=== PATIENT | male | born 1960 | race Caucasian/White ===

== ENCOUNTER 2024-05-01 13:56 | Emergency (ER) | payer BC, SELFPAY ==
[2024-05-01 14:04] VITALS: BP 148/98
--- NOTE | 2024-05-01 14:05 | ED.GENMED ---
ED Provider Triage
<Lashay Giron PA-C - Last Filed: 05/01/24 17:00>
-
Patient seen by provider in Triage?: Seen in Triage
Attestation: A medical screening examination has been initiated by a qualified medical provider. Based on the assessment performed at this time, it has been determined that an emergent medical condition may exist and the patient has been informed
that further medical evaluation and possible additional diagnostic testing may be needed.
HPI: 64yoM here with LLQ pain since last night. Feels like he has to have a BM but is unable to. Also having chills, no fevers. No prior abdominal surgeries.
GENERAL: Alert , in no apparent distress
EYE: No visual abnormalities.
NECK: Trachea midline
ENT: No visible abnormalities.
LUNGS: No acute respiratory distress
NEUROLOGICAL: Alert and oriented
SKIN: Skin intact. No visible changes.
MUSCULOSKELETAL: Moving extremities normally
PSYCH: Normal and appropriate interaction.
This is a medical evaluation conducted in person to initiate diagnostic evaluation and provide initial therapeutics. Please see further documentation by the treating clinician.
Abdominal labs, UA, and CT abdomen ordered.
History of Present Illness
<Lashay Giron PA-C - Last Filed: 05/01/24 17:00>
General
Chief Complaint: Abdominal Pain
Time Seen by Provider: 05/01/24 14:35
<Carroll Brandon MD - Last Filed: 05/01/24 16:43>
General
Source: patient and spouse
Exam Limitations: none
Nursing documentation reviewed up to this point in time: agreed with
History of Present Illness
History of Present Illness:
64-year-old male with past medical history of hypertension, GERD who presents to the emergency room with his for evaluation of abdominal pain. Patient reports onset of symptoms over the past 24 hours and have been constant since that time. He
reports a dull pressure sensation in the left lower quadrant that radiates to his left flank. No clear triggering or relieving factors noted. He denies any recent constipation or diarrhea. He denies any dysuria, hematuria, change in urinary
frequency. He has had some nausea no vomiting. Denies any fever or chills. Denies similar symptoms in the past.
Past History
<Lashay Giron PA-C - Last Filed: 05/01/24 17:00>
Past History
ED Past Medical History: GERD, HTN and Other (Pneumonia); Negative Hypercholesterolemia
ED Past Surgical History: None
Social History
Tobacco: Former smoker
Alcohol: Occasional
Drug: None
Personal:
Living: with family
Employment: Other
Family History
Family History: Other
Review of Systems
<Carroll Brandon MD - Last Filed: 05/01/24 16:43>
Review of Systems
All Other Systems: ROS reviewed and negative except as documented in HPI and ROS
Constitutional: Denies fever or chills
Respiratory: Denies cough or trouble breathing
Cardiac: Denies chest pain or palpitations
ABD/GI: Reports abdominal pain and nausea; Denies vomiting, diarrhea or constipated
: Reports flank pain; Denies dysuria or frequency
Musculoskeletal: Denies neck pain or back pain
Neurological: Denies dizzy or headache
Phy Exam
<Carroll Brandon MD - Last Filed: 05/01/24 16:43>
Physical Exam
Physical Exam:
General: Awake, alert, oriented x3; no acute distress
Head: Normocephalic, atraumatic
Eyes: Conjunctiva normal, sclera anicteric
Throat: Airway intact, handling secretions
Neck: Trachea midline, supple without meningismus
Lungs: Clear to auscultation bilaterally, no wheezing, rales, rhonchi
Heart: Regular rate and rhythm, no murmurs, gallops, or rubs
Abd: Soft, non distended, tender to palpation left lower quadrant with no appreciable masses
Back: No CVA tenderness
Neuro: No gross deficit
Extremities: Warm and well-perfused
Scores
<Carroll Brandon MD - Last Filed: 05/01/24 16:43>
Heart Failure Risk
Heart Failure Risk Score: Not Applicable
Heart Score for Chest Pain Patients
STEMI patient?: Not applicable
Withdrawal Assessment of Alcohol
Withdrawal Assessment Completed?: Not applicable
Course
<Lashay Giron PA-C - Last Filed: 05/01/24 17:00>
Orders/Labs/Results
Orders:
Orders
05/01/24 14:06
CT Abd/Pel (IV only)-[facility] only Urgent
Comment:
Reason For Exam: LLQ pain
05/01/24 14:11
Complete Blood Count/With Diff Urgent
Comprehensive Metabolic Panel Urgent
Lipase Urgent
05/01/24 14:12
Urinalysis Reflex To Culture Urgent
Date Specimen was Collected: 05/01/24
Time Specimen was Collected: 14:11
Urine Microscopic Reflex Cult Urgent
05/01/24 15:53
0.9% Sodium Chloride 1000 ml [Nss] 1,000 ml IV BOLUS
Ketorolac [Toradol] 15 mg IV NOW STA
05/01/24 16:25
Ciprofloxacin HCl [Cipro] 500 mg PO ONCE ONE
MetroNIDAZOLE [Flagyl] 500 mg PO NOW STA
Abnormal Lab Results
05/01/24 05/01/24
14:11 14:12
WBC 16.6 H 10^3/uL
(4.8-10.8)
Abs Immat Gran (auto) 0.1 H 10^3/uL
(0-0.05)
Absolute Neuts (auto) 13.3 H 10^3/uL
(1.4-6.5)
Absolute Monos (auto) 1.3 H 10^3/uL
(0.1-0.6)
Neutrophils % 80.0 H %
(42.2-75.2)
Lymphocytes % 11.4 L %
(20.5-51.1)
Glucose 111 H mg/dl
(70-99)
Ur Occult Blood Reflex Trace A
(Negative)
05/01/24 14:11
05/01/24 14:11
Vital Signs
Initial and Last Documented VS:
Initial Vital Signs
Temp Pulse Resp BP Pulse Ox
98.7 F 99 18 148/98 95
05/01/24 14:04 05/01/24 14:04 05/01/24 14:04 05/01/24 14:04 05/01/24 14:04
Last Documented Vital Signs
Temp Pulse Resp BP Pulse Ox
98.7 F 77 16 141/69 99
05/01/24 14:04 05/01/24 16:52 05/01/24 16:52 05/01/24 16:52 05/01/24 16:52
<Carroll Brandon MD - Last Filed: 05/01/24 16:43>
Orders/Labs/Results
Orders:
Orders
05/01/24 14:06
CT Abd/Pel (IV only)-[facility] only Urgent
Comment:
Reason For Exam: LLQ pain
05/01/24 14:11
Complete Blood Count/With Diff Urgent
Comprehensive Metabolic Panel Urgent
Lipase Urgent
05/01/24 14:12
Urinalysis Reflex To Culture Urgent
Date Specimen was Collected: 05/01/24
Time Specimen was Collected: 14:11
Urine Microscopic Reflex Cult Urgent
05/01/24 15:53
0.9% Sodium Chloride 1000 ml [Nss] 1,000 ml IV BOLUS
Ketorolac [Toradol] 15 mg IV NOW STA
05/01/24 16:25
Ciprofloxacin HCl [Cipro] 500 mg PO ONCE ONE
MetroNIDAZOLE [Flagyl] 500 mg PO NOW STA
Abnormal Lab Results
05/01/24 05/01/24
14:11 14:12
WBC 16.6 H 10^3/uL
(4.8-10.8)
Abs Immat Gran (auto) 0.1 H 10^3/uL
(0-0.05)
Absolute Neuts (auto) 13.3 H 10^3/uL
(1.4-6.5)
Absolute Monos (auto) 1.3 H 10^3/uL
(0.1-0.6)
Neutrophils % 80.0 H %
(42.2-75.2)
Lymphocytes % 11.4 L %
(20.5-51.1)
Glucose 111 H mg/dl
(70-99)
Ur Occult Blood Reflex Trace A
(Negative)
05/01/24 14:11
05/01/24 14:11
Vital Signs
Initial and Last Documented VS:
Initial Vital Signs
Temp Pulse Resp BP Pulse Ox
98.7 F 99 18 148/98 95
05/01/24 14:04 05/01/24 14:04 05/01/24 14:04 05/01/24 14:04 05/01/24 14:04
Last Documented Vital Signs
Temp Pulse Resp BP Pulse Ox
98.7 F 77 16 141/69 99
05/01/24 14:04 05/01/24 16:52 05/01/24 16:52 05/01/24 16:52 05/01/24 16:52
<Carroll Brandon MD - Last Filed: 05/01/24 16:43>
MDM/Problems Addressed
Differential Diagnosis Includes:
Diverticulitis, UTI, nephrolithiasis
MDM/Problems Addressed:
64-year-old male presents for evaluation of left lower quadrant abdominal pain over the past 24 hours. Associate with nausea no vomiting. Vitals and exam as above. Will check labs including CBC and a CMP, urinalysis. Check CT abdomen pelvis.
Toradol for pain. Provide fluids. Monitor closely reassess after the above.
Labs reviewed: CBC shows leukocytosis of 16.6, CMP no clinically significant abnormalities. Urinalysis negative for infection. CT abdomen pelvis shows acute uncomplicated diverticulitis. Patient's vitals have been stable, blood pressure normal,
heart rate in the 80s, no fever here. Does not appear to be septic, pain well-controlled with Toradol. He is taking p.o. Reasonable candidate for trial of outpatient antibiotics. Discussed low fiber and bland diet. Discussed follow-up plan with
PCP and GI. He feels very comfortable with this. We spoke in detail about return precautions and all questions were answered.
<Carroll Brandon MD - Last Filed: 05/01/24 16:43>
*Radiology
Radiology exam reviewed: radiology read reviewed
*Pulse Oximetry
Patient hypoxic: no
*Critical Care Note
Total Time (30-74mins, 75-104mins- exclusive of procedures): Not Applicable
Data Reviewed
Source: patient and spouse
ED Attending Note
<Lashay Giron PA-C - Last Filed: 05/01/24 17:00>
-
Portions of this chart may have been created with voice recognition software.� Occasional wrong word or��sound alike� substitutions may have occurred due to the inherent limitations of voice recognition software.
Discharge Plan
Departure
Patient Disposition: Home (Routine Discharge)
Date of Disposition: 05/01/24
Time of Disposition: 16:25
Patient with high blood pressure during this ER visit?: Yes
Discharge Problem:
Diverticulitis
Instructions: Diverticulitis (DC)
Prescriptions:
New
ciprofloxacin HCl [Cipro] 500 mg tablet
500 mg PO BID 7 Days Qty: 14 0RF
metronidazole 500 mg tablet
500 mg PO TID Qty: 21 0RF
No Action
lisinopril 10 MG tablet
10 mg PO DAILY
lansoprazole [Prevacid] 30 MG capsule,delayed release(DR/EC)
40 mg PO PRN PRN (Reason: heartburn)
pantoprazole [Protonix] 20 mg Tablet,Delayed Release (Dr/Ec)
20 mg PO DAILY
Tylenol PM
2 tab PO DAILY
mupirocin 2 % ointment
1 applic topical BID Qty: 1 0RF
Patient Comments:
started treatment tuesday08/12/23 and was taking BID, last took at home 08/15/23 in am
prednisone 10 mg tablet
40 mg PO TAPER Qty: 20 0RF
Rx Instructions:
4 TABS X 2 DAYS, 3 TABS X 2 DAYS, 2 TABS X 2 DAYS, 1 TAB X 2 DAYS, THEN STOP
gabapentin 300 mg capsule
300 mg PO HS Qty: 10 0RF
oxycodone 5 mg tablet
5 - 10 mg PO Q6HPRN PRN (Reason: 1 tab moderate-2 tabs severe pain) Qty: 30 0RF
Rx Instructions:
Dx surgery
ongoing therapy
Post-op use
cyclobenzaprine 5 mg tablet
5 mg PO BID Qty: 30 0RF
sennosides [Senokot] 8.6 mg tablet
17.2 mg PO BID Qty: 2 0RF
aspirin 325 mg tablet
325 mg PO DAILY Qty: 1 0RF
Rx Instructions:
Take with food
magnesium hydroxide [Milk of Magnesia] 400 mg/5 mL suspension
30 ml PO HS PRN (Reason: Constipation) Qty: 1 0RF
docusate sodium [Colace] 100 mg capsule
100 mg PO BID Qty: 1 0RF
Referrals:
Yeny Spencer MD [Family Provider] - Follow up in 5-7 days
Activity Restrictions/Additional Instructions:
Thank you for visiting the Emergency Department at [facility].
1. Please schedule a follow up appointment as directed. Call first thing tomorrow morning to make an appointment.
2. If indicated, please take your medications as instructed and indicated on discharge paperwork.
3. If any of your symptoms do not improve, or persist, or become more severe within 6-12 hours, please return to the emergency department for further care.
4. Please return to the emergency department if you develop a headache, neck pain/stiffness, fever greater than 100.4F, chest pain, shortness of breath, persistent nausea, vomiting, slurred speech, difficulty walking, numbness/tingling, weakness,
signs of infection or any other symptoms that are worrisome to you.
Please call [phone] if you have any questions.
Interventions
Interventions:
*Risk Screen - Suicide Last Done: 05/01/24 14:04
*General Assessment Last Done: 05/01/24 14:04
*Neglect/Abuse Screening Last Done: 05/01/24 14:04
ED- Fall Risk Assessment Last Done: 05/01/24 14:52
*ED COVID-19 Vaccine History Last Done: 05/01/24 14:04
*Nursing Disposition Last Done: 05/01/24 16:52
ZS-Yzjabf-Cstazwwedv Assessment Last Done: 05/01/24 14:52
Discharge Date and Time
Print Language: PERSIAN
[2024-05-01 14:19] LABS: % Basophils 0.4 % (0-2); % Eosinophils 0.1 % (0-6); % Immature Granulocytes 0.4 % (0-0.5); % Lymphocytes 11.4 % (20.5-51.1); % Monocytes 7.7 % (1.7-9.3); Absolute Basophils 0.1 10^3/uL (0-0.2); Absolute Immature Granulocytes 0.1 10^3/uL (0-0.05); Absolute Lymphocytes 1.9 10^3/uL (1.2-3.4); Absolute Monocytes 1.3 10^3/uL (0.1-0.6); Absolute Neutrophils 13.3 10^3/uL (1.4-6.5); Hematocrit 42.9 % (39.0-52.0); Hemoglobin 15.5 g/dL (13.0-18.0); Mean Corp Hgb Conc. 36.1 g/dL (33.0-37.0); Mean Corpuscular Hgb 30.2 pg (27.0-31.0); Mean Corpuscular Volume 83.6 fL (80.0-94.0); Mean Platelet Volume 9.8 fL (7.4-10.4); Nucleated Red Blood Cells % 0 % (-); Platelet Count 220 10^3/uL (130-400); Red Blood Cell Count 5.13 10^6/uL (4.70-6.10); Red Cell Dist. Width 12.7 % (11.5-14.5); White Blood Cell Count 16.6 10^3/uL (4.8-10.8)
[2024-05-01 14:29] LABS: ALT (SGPT) 27 U/L (0-50); AST (SGOT) 20 U/L (17-59); Albumin 4.9 g/dl (3.5-5.0); Alkaline Phosphatase 68 U/L (38-126); Blood Urea Nitrogen 11 mg/dl (9-20); Carbon Dioxide 26 mmol/L (22-30); Chloride 100 mmol/L (98-107); Glucose 111 mg/dl (70-99); Lipase 61 U/L (23-300); Potassium 4.7 mmol/L (3.5-5.1); Sodium 135 mmol/L (135-145); Total Bilirubin 1.1 mg/dl (0.2-1.3); Total Protein 7.3 g/dl (6.3-8.2); eGFR > 60.00
[2024-05-01 14:32] LABS: Urine Albumin Negative (Neg - Trace); Urine Bilirubin Negative (Negative); Urine Character Clear (Clear); Urine Color Yellow; Urine Glucose Negative (Negative); Urine Ketone Negative (Negative); Urine Leukocyte Negative (Negative); Urine Nitrite Negative (Negative); Urine Occult Blood Trace (Negative); Urine Urobilinogen Negative (Neg - 1+)
[2024-05-01 14:43] VITALS: BMI 31.1
[2024-05-01 15:16] LABS: Urine White Cell 0-2 /HPF (0-5)
[2024-05-01 15:17] LABS: Urine Red Blood Cell 0-2 /HPF (0-2)
[2024-05-01] MEDS: NSS 1000 IV (16:08)
[2024-05-01] MEDS: TORADOL 15 MG IV (16:09)
[2024-05-01] MEDS: CIPRO 500 MG PO (16:47)
[2024-05-01] MEDS: FLAGYL 500 MG PO (16:48)
[2024-05-01 16:52] VITALS: BP 141/69
== END 2024-05-01 17:10 | disposition home or self-care (01) ==
LOC: EMR 13:56
PROVIDERS: Physician Assistant; EMERGENCY PHYSICIAN Emergency Medicine; FAMILY PHYSICIAN Family Medicine
DX: K57.32 Diverticulitis of large intestine without perforation or abscess without bleeding (principal); I10 Essential (primary) hypertension; K21.9 Gastro-esophageal reflux disease without esophagitis; Z87.891 Personal history of nicotine dependence
CPT/HCPCS: 99284; 96374; 96361; 74177; 80053; 81003; 81015; 83690; 85025; Q9967

== ENCOUNTER 2024-06-05 12:43 | Inpatient (IN) | payer BC, SELFPAY ==
[2024-06-05 09:19] VITALS: BP 147/91
--- NOTE | 2024-06-05 09:35 | ED.GENMED ---
History of Present Illness
General
Chief Complaint: Abdominal Pain
Source: patient
Exam Limitations: none
Time Seen by Provider: 06/05/24 09:35
Nursing documentation reviewed up to this point in time: agreed with
History of Present Illness
History of Present Illness:
This is a 64 y/o male with pmh of HTN, diverticulitis, GERD, presents to the emergency department today with concerns of left lower quadrant pain. Patient states that this has been going on for the past month. Patient was originally seen in our
emergency department for this problem on 05/01/[address] scan done of the abdomen and pelvis which showed mid sigmoid diverticulitis. Patient was started on ciprofloxacin and metronidazole for 7 days. Also notes left sided low back pain.
Patient followed up with his GI physician Dr. Beckman. Patient's symptoms improved but then returned, he was subsequently started on Levaquin by Dr. Beckman. Patient again had improvement of symptoms and then they returned. He called Dr. Beckman's office who
recommended repeat CT scan and ER evaluation. He also has intermittent nausea. He denies fevers or chills, hematuria, hematochezia, lightheadedness. He does not take any blood thinners. Last meal was this morning at 8 am.
Past History
Past History
ED Past Medical History: GERD, HTN and Other (Pneumonia); Negative Hypercholesterolemia
ED Past Surgical History: None
Social History
Tobacco: Former smoker
Alcohol: Occasional
Drug: None
Personal:
Living: with family
Employment: Other
Family History
Family History: Other
Review of Systems
Review of Systems
All Other Systems: ROS reviewed and negative except as documented in HPI and ROS
Phy Exam
Physical Exam
Physical Exam:
General: Patient is well appearing and in no acute distress; non-toxic
Skin: Warm and dry, no rashes or lesions
Head: Normocephalic, atraumatic
Eyes: Sclera non-icteric. EOMs intact. PERRLA.
Cardiac: Regular rate and rhythm, no murmurs
Peripheral Vascular: No lower extremity swelling or edema
Pulm: Normal respiratory effort
Abdomen: Mild LLQ tenderness to palpation, no rebound tenderness, to palpable masses
Neuro: CN II-XII intact, no focal neurologic deficits.
Psychiatric: Appropriate mood and affect.
Course
Orders/Labs/Results
Orders:
Orders
06/05/24 09:56
CT Abd/Pel (IV only)-DH only Urgent
Comment:
Reason For Exam: LLQ pain
06/05/24 10:02
Complete Blood Count/With Diff Urgent
Comprehensive Metabolic Panel Urgent
Lipase Urgent
06/05/24 11:59
Urinalysis Reflex To Culture Urgent
Date Specimen was Collected: 06/05/24
Time Specimen was Collected: 11:58
06/05/24 12:08
Piperacillin/Tazo 4.5 Gram [Zosyn] 4.5 gram in 100 ml IV NOW
06/05/24 12:21
Admit/Transfer Patient As Directed
Co-Sign Provider:
Level of Care: Inpatient admission
Assign to:: Medical/Surgical
Physician / Group: owen
Diagnosis: diverticulitis
Reason for Hospitalization: diverticulitis
Expected length of stay greater than two midnights?: Yes
ELOS- Estimated Length of Stay in days: 2
I certify the patient meets the requirements for IP care: Yes
PRN Pain Medication Management As Directed
May give lesser potent ordered pain med per pt: Yes
preference::
Protocol:: Medication orders for pain may be administered in a
manner that supports deferring to patient preference
when the pt is:
- Requesting an ordered lesser potent pain medication.
Least to most potent pain medications are defined
as: acetaminophen < NSAID < tramadol < opioids
(morphine, oxycodone, hydromorphone).
- Requesting a lesser dose of the same medication IF
ORDERED.
- Requesting a less intrusive route of administration
if both routes are prescribed by the provider (PO <
IV).
06/05/24 12:22
Code Status As Directed
Resuscitation Status: Full Code
06/05/24 13:19
HYDROmorphone [Dilaudid] 0.5 mg IV Q4HPRN PRN
Montelukast Sodium [Singulair] 10 mg PO DAILYPRN PRN
Ondansetron Injectable [Zofran] 4 mg IV Q6HPRN PRN
06/05/24 13:19
GASTROINTESTINAL CONSULT Routine
Consulting Provider: Fantasma Kuo
Was physician already notified: Yes
Activity As Directed
Activity Level: As Tolerated
Vital Signs As Directed
Frequency: Per unit guidelines
DX Deep Vein Thrombosis Video Routine
06/05/24 18:00
Piperacillin/Tazo 3.375 Gram [Zosyn] 3.375 gram in 50 ml IV Q6
06/05/24 20:00
Heparin 5,000 units SC Q12
06/05/24 22:00
Famotidine [Pepcid] 40 mg PO HS
06/06/24 06:00
Complete Blood Count/With Diff IN AM
Comprehensive Metabolic Panel IN AM
06/06/24 08:00
Ascorbic Acid [Vitamin C] 500 mg PO DAILY
Cholecalciferol (Vitamin D3) [VITAMIN D3 (cholecalciferol)] 25 mcg PO DAILY
Cyanocobalamin [Vitamin B-12] 500 mcg PO DAILY
Lactobac/Bifidobac [Visbiome] 1 cap PO DAILY
Lisinopril [Zestril] 10 mg PO DAILY
Multivitamin [Theragran] 1 tablet PO DAILY
Pantoprazole [Protonix] 40 mg PO DAILY
Vitamin E 400 units PO DAILY
Abnormal Lab Results
06/05/24
10:02
Glucose 101 H mg/dl
(70-99)
06/05/24 10:02
06/05/24 10:02
Vital Signs
Initial and Last Documented VS:
Initial Vital Signs
Temp Pulse Resp BP Pulse Ox
98.7 F 87 20 147/91 97
06/05/24 09:19 06/05/24 09:19 06/05/24 09:19 06/05/24 09:19 06/05/24 09:19
Last Documented Vital Signs
Temp Pulse Resp BP Pulse Ox
98.1 F 72 14 117/73 99
06/05/24 15:31 06/05/24 15:31 06/05/24 15:31 06/05/24 15:31 06/05/24 15:31
MDM/Problems Addressed
Differential Diagnosis Includes:
ddx include complicated diverticulitis, bowel perforation, bowel obstruction, intra-abdominal abscess, gastroenteritis
MDM/Problems Addressed:
64-year-old male with past medical history of diverticulitis presents emergency department today with less than a month of left lower quadrant pain. Patient was diagnosed with diverticulitis recently and has been on 2 rounds of antibiotics as an
outpatient. Patient is also had intermittent nausea but he has had no fevers or chills. Patient was sent here by Dr. Beckman who recommended repeat CAT scan and potential IV antibiotics. Patient is well-appearing on exam, he is afebrile, CT scan
reveals persistent inflammation in his sigmoid colon concerning for recurrent diverticulitis. Patient started on IV antibiotics and referred for admission.
Chronic conditions affecting care:
Hypertension, GERD, IBS, gastric ulcers, diverticular
*Pulse Oximetry
Patient hypoxic: no
*Critical Care Note
Total Time (30-74mins, 75-104mins- exclusive of procedures): Not Applicable
Data Reviewed
Review of Other/Old Records Reveals: Records (Reviewed ER physician documentation from 05/01/2024 patient was seen for acute diverticulitis, discharged on Cipro and Flagyl)
Source: patient and records
Patient Management
Escalation/DeEscalation of care consider admission/obs:
Reviewed case with my ER attending
ED Attending Note
-
Portions of this chart may have been created with voice recognition software.� Occasional wrong word or��sound alike� substitutions may have occurred due to the inherent limitations of voice recognition software.
Discharge Plan
Departure
Patient Disposition: Admit
Date of Disposition: 06/05/24
Time of Disposition: 12:07
Admit to: Med/Surg
Presentation/result/management discussed w/ accepting MD/DO: Hospitalist
Patient with high blood pressure during this ER visit?: Yes
Condition: Fair
Discharge Problem:
Diverticulitis
Interventions
Interventions:
*Risk Screen - Suicide Last Done: 06/05/24 09:19
*General Assessment Last Done: 06/05/24 09:19
*Neglect/Abuse Screening Last Done: 06/05/24 09:19
ED- Fall Risk Assessment Last Done: 06/05/24 12:13
*ED COVID-19 Vaccine History Last Done: 06/05/24 09:47
*Nursing Disposition Last Done: 06/05/24 13:10
GR-Zcwdjq-Vtezhcaogd Assessment Last Done: 06/05/24 09:39
Discharge Date and Time
Discharge Date/Time: 06/05/24 13:11
[2024-06-05 10:12] LABS: % Basophils 0.9 % (0-2); % Eosinophils 1.1 % (0-6); % Immature Granulocytes 0.4 % (0-0.5); % Lymphocytes 29.8 % (20.5-51.1); % Monocytes 7.8 % (1.7-9.3); Absolute Basophils 0.1 10^3/uL (0-0.2); Absolute Eosinophils 0.1 10^3/uL (0-0.7); Absolute Lymphocytes 1.7 10^3/uL (1.2-3.4); Absolute Monocytes 0.4 10^3/uL (0.1-0.6); Absolute Neutrophils 3.4 10^3/uL (1.4-6.5); Hematocrit 42.3 % (39.0-52.0); Hemoglobin 14.7 g/dL (13.0-18.0); Mean Corp Hgb Conc. 34.8 g/dL (33.0-37.0); Mean Corpuscular Hgb 30.1 pg (27.0-31.0); Mean Corpuscular Volume 86.7 fL (80.0-94.0); Mean Platelet Volume 9.6 fL (7.4-10.4); Nucleated Red Blood Cells % 0 % (-); Platelet Count 187 10^3/uL (130-400); Red Blood Cell Count 4.88 10^6/uL (4.70-6.10); Red Cell Dist. Width 12.5 % (11.5-14.5); White Blood Cell Count 5.6 10^3/uL (4.8-10.8)
[2024-06-05 10:24] LABS: ALT (SGPT) 30 U/L (0-50); AST (SGOT) 21 U/L (17-59); Albumin 4.2 g/dl (3.5-5.0); Alkaline Phosphatase 49 U/L (38-126); Blood Urea Nitrogen 15 mg/dl (9-20); Calcium 9.1 mg/dl (8.4-10.2); Carbon Dioxide 24 mmol/L (22-30); Chloride 105 mmol/L (98-107); Glucose 101 mg/dl (70-99); Lipase 86 U/L (23-300); Potassium 4.4 mmol/L (3.5-5.1); Sodium 139 mmol/L (135-145); Total Bilirubin 0.7 mg/dl (0.2-1.3); Total Protein 6.7 g/dl (6.3-8.2); eGFR > 60.00
[2024-06-05 11:44] VITALS: BP 109/62
[2024-06-05] MEDS: ZOSYN 100 IV (12:10)
--- NOTE | 2024-06-05 12:25 | HPS.HSE ---
Family Physician
-
Family Physician: Yeny Spencer
Chief Complaint
-
left lower quadrant abdominal pain
History of Present Illness
64-year-old male past medical history of hypertension, diverticulitis, GERD presenting with left lower quadrant abdominal pain ongoing for past month. He was seen in the emergency room for this on 05/[address] scan of the abdomen pelvis which
showed sigmoid diverticulitis. He was started on ciprofloxacin and metronidazole for 7 days. He followed up with his GI physician Dr. Beckman and his symptoms had improved while on antibiotics but then returned. He was subsequently started on
Levaquin which she finished last week by Dr. Beckman and had improvement in symptoms but then they returned. He called Dr. Beckman's office who recommended repeat CT scan and ER evaluation.
He denies any fevers or chills. Denies any nausea or vomiting or diarrhea.
Patient has been taking Metamucil.
He denies fevers or chills, urinary symptoms, blood in the urine.
He denies smoking or alcohol use.
Medical History
Past Medical History
Past Medical History: Reports Other (hypertension, diverticulitis, GERD)
Past Surgical History: Reports Orthopedic
Social History
Tobacco: Non-smoker
Alcohol: None
Drug: None
Family History
Family History: Not pertinent
Allergies / Home Medications
Allergies reflects when Allergies were last updated in [facility].
Home Medications with original date entered in [facility]
Allergy/Medication List:
Allergies
Allergy/AdvReac Type Severity Reaction Status Date / Time
celecoxib [From Celebrex] Allergy Hives Verified 06/05/24 09:23
meloxicam Allergy Hives Verified 06/05/24 09:23
Sulfa (Sulfonamide Allergy Hives Verified 06/05/24 09:23
Antibiotics)
Home Medications
lisinopril 10 mg tablet 10 mg PO DAILY 07/15/13
Lactobac no.2-Bifidobac no.1-S. thermo 112.5 billion cell capsule (Visbiome) 1 cap PO DAILY 06/05/24
ascorbic acid (vitamin C) 500 mg tablet (Vitamin C) 500 mg PO DAILY 06/05/24
cholecalciferol (vitamin D3) 25 mcg (1,000 unit) tablet (Vitamin D3) 25 mcg PO DAILY 06/05/24
cyanocobalamin (vitamin B-12) 500 mcg tablet 500 mcg PO DAILY 06/05/24
diphenhydramine 25 mg-acetaminophen 500 mg tablet (Acetaminophen PM) 1 tab PO HS PRN sleep 06/05/24
famotidine 40 mg tablet 40 mg PO HS 06/05/24
montelukast 10 mg tablet 10 mg PO DAILYPRN PRN allergies 06/05/24
pantoprazole 40 mg tablet,delayed release 40 mg PO DAILY 06/05/24
psyllium 1 packet PO DAILY 06/05/24
therapeutic multivitamin 1 tab PO DAILY 06/05/24
vitamin E 268 mg (400 unit) capsule 268 mg PO DAILY 06/05/24
Review of Systems
-
History Source: Patient
A 12 point ROS was completed and negative except as noted: Yes
Constitutional: Reports No Symptoms
EENT: Reports No Symptoms
Respiratory: Reports No Symptoms
Cardiac: Reports No Symptoms
Abdomen/GI: Reports See HPI
: Reports No Symptoms
Musculoskeletal: Reports No Symptoms
Skin: Reports No Symptoms
Neurological: Reports No Symptoms
Endocrine: Reports No Symptoms
Hematologic/Lymphatic: Reports No Symptoms
Psych: Reports No Symptoms
Physical Exam
Vital Signs
Vital Signs
Temp Pulse Resp BP Pulse Ox
98.7 F 73 16 109/62 97
06/05/24 09:19 06/05/24 11:44 06/05/24 12:00 06/05/24 11:44 06/05/24 11:44
Physical Exam
General: Well Developed, Well Nourished and No Apparent Distress
HEENT: NormoCephalic, Moist mucous membranes and Atraumatic
Respiratory: Clear
Cardiac: S1/S2 and Regular Rhythm; No Murmur or Rub
GI: Soft, Non Distended, Normal Bowel Sounds and Tender (LLQ ); No Organomegaly
Rectal: Deferred by Provider
Musculoskeletal: No Clubbing, No Cyanosis and No Edema
Skin: No Rash
Neuro: Nonfocal/grossly intact
Laboratory Results
-
06/05/24 10:02
06/05/24 10:02
Laboratory Results
Total Bilirubin 0.7 mg/dl (0.2-1.3) 06/05/24 10:02
AST 21 U/L (17-59) 06/05/24 10:02
ALT 30 U/L (0-50) 06/05/24 10:02
Alkaline Phosphatase 49 U/L (38-126) 06/05/24 10:02
Lipase 86 U/L (23-300) 06/05/24 10:02
Data Reviewed
-
Lab Data: Labs Reviewed by me
Old Records: Reviewed
Impression/Plan
-
IMPRESSION:
PLAN:
# Persistent diverticulitis possibly exacerbated by Metamucil
-CT abdomen pelvis shows formation at the site of previous diverticulitis of the sigmoid improved compared to previously
-Clear liquids
-Zosyn
-Hold Metamucil
-GI consulted
Essential hypertension
-Continue lisinopril
GERD
-Continue Protonix, famotidine
Full code
DVT prophylaxis�heparin
Clear liquids
[2024-06-05 12:26] LABS: Urine Albumin Negative (Neg - Trace); Urine Bilirubin Negative (Negative); Urine Character Clear (Clear); Urine Color Yellow; Urine Glucose Negative (Negative); Urine Ketone Negative (Negative); Urine Leukocyte Negative (Negative); Urine Nitrite Negative (Negative); Urine Occult Blood Negative (Negative); Urine Urobilinogen Negative (Neg - 1+)
[2024-06-05 13:15] VITALS: BP 137/97
[2024-06-05 13:16] VITALS: BMI 29.8
--- NOTE | 2024-06-05 13:42 | CON.GI ---
Addendum entered and electronically signed by Fantasma Kuo MD 06/05/24 16:53:
I saw and examined the patient.
The medical record consultant note was reviewed and I agree with the note.
-Acute uncomplicated diverticulitis -failed outpatient oral antibiotic. Repeat CT abdomen-improved diverticulitis. No complication. last colonoscopy 2012.
plan
Full liquid diet today
IV antibiotic started by medical team. Continue antibiotics for now
If no pain in a.m. advance to low residual diet-will advised to continue for 1 week after discharge
Follow-up with GI as outpatient. outpatient colonoscopy in 8 weeks
will follow
Original Note:
Consultation
-
Date/Time Consultation Requested: 06/05,:19
Date/Time Consultation Performed: 06/05,13:45
Requesting Provider: Darek Mares
Performing Provider: Stephen Pak
Reason for Consultation: Diverticulitis
Medical History
Chief Complaint / HPI
Chief Complaint: Pain in LLQ-1 month
History of Present Illness:
Patient is a 64 year old male with PMH of Essential hypertension taking 10mg lisinopril regularly,diverticulitis and GERD/hiatal hernia stable on 40mg omeprazole in the morning and 40mg famotidine at night.He has been having pain in left lower
quadrant on and off for last one month.He ignored the symptoms initially and thought them to be related to indigestion and bloating.He denied any apetite,weight or bowel changes.There was no fever, nausea,vomiting,melena or blood in stools.He had a
ct abdomen done on April that showed mild sigmoid diverticulitis.
He was advised a course of oral antibiotics with ciprofloxacin and flagyl but he still complained of pain so he was given another 10 day course of Levaquin.He completed the course but still had pain and was referred by to the ER for IV
antibiotics.
The lab-work done in the ER is within normal limits.His WBC count is 5.6.The ct abdomen shows mild diverticulitis in the same spot in sigmoid and could not be decided if it was the residual or new one.
Past Medical History
Past Medical History: GERD, HTN and Other (Diverticulitis)
Past Surgical History: Orthopedic
Social History
Tobacco: Non-Smoker
Alcohol: None
Living: With Family
Family History
Family History: Reviewed & Not Pertinent
Allergies / Home Medications
Allergy/AdvReac Type Severity Reaction Status Date / Time
celecoxib [From Celebrex] Allergy Hives Verified 06/05/24 09:23
meloxicam Allergy Hives Verified 06/05/24 09:23
Sulfa (Sulfonamide Allergy Hives Verified 06/05/24 09:23
Antibiotics)
�Medication �Instructions �Recorded
lisinopril 10 mg tablet 10 mg PO DAILY Blood Pressure 01/29/13
Lactobac no.2-Bifidobac no.1-S. 1 cap PO DAILY probiotic 06/05/24
thermo 112.5 billion cell capsule
(Visbiome)
ascorbic acid (vitamin C) 500 mg 500 mg PO DAILY Supplement 06/05/24
tablet (Vitamin C)
cholecalciferol (vitamin D3) 25 25 mcg PO DAILY Supplement 06/05/24
mcg (1,000 unit) tablet (Vitamin
D3)
cyanocobalamin (vitamin B-12) 500 500 mcg PO DAILY Supplement 06/05/24
mcg tablet
diphenhydramine 25 1 tab PO HS PRN sleep 06/05/24
mg-acetaminophen 500 mg tablet
(Acetaminophen PM)
famotidine 40 mg tablet 40 mg PO HS Gastrointestinal Issue 06/05/24
montelukast 10 mg tablet 10 mg PO DAILYPRN PRN allergies 06/05/24
pantoprazole 40 mg tablet,delayed 40 mg PO DAILY Gastrointestinal 06/05/24
release Issue
psyllium 1 packet PO DAILY Constipation 06/05/24
therapeutic multivitamin 1 tab PO DAILY Supplement 06/05/24
vitamin E 268 mg (400 unit) capsule 268 mg PO DAILY Supplement 06/05/24
Review of Systems
-
History Source: Patient
All other systems: A 12 pt ROS was Negative except as stated above in HPI
Vital Signs
Temp Pulse Resp BP Pulse Ox
97.7 F 76 14 137/97 98
06/05/24 13:15 06/05/24 13:15 06/05/24 13:15 06/05/24 13:15 06/05/24 13:15
Physical Exam
Exam
General: Well Developed, Well Nourished, Comfortable and Good Appetite
HEENT: Anicteric and Moist Mucous Membranes
Respiratory: Clear
Cardiac: S1/S2 and Regular Rhythm
GI: Soft, Normal Bowel Sounds and Tender (Left lower quadrant)
Genito-urinary: No Costovertebral Tender
Musculoskeletal: No Clubbing, No Cyanosis and No Edema
Skin: Warm
Neuro: Awake, Oriented and No Motor Deficits
Psych: Calm
Results
WBC 5.6 10^3/uL (4.8-10.8) 06/05/24 10:02
Hgb 14.7 g/dL (13.0-18.0) 06/05/24 10:02
Hct 42.3 % (39.0-52.0) 06/05/24 10:02
MCV 86.7 fL (80.0-94.0) 06/05/24 10:02
Plt Count 187 10^3/uL (130-400) 06/05/24 10:02
Absolute Neuts (auto) 3.4 10^3/uL (1.4-6.5) 06/05/24 10:02
Sodium 139 mmol/L (135-145) 06/05/24 10:02
Potassium 4.4 mmol/L (3.5-5.1) 06/05/24 10:02
Chloride 105 mmol/L (98-107) 06/05/24 10:02
Carbon Dioxide 24 mmol/L (22-30) 06/05/24 10:02
BUN 15 mg/dl (9-20) 06/05/24 10:02
Creatinine 0.8 mg/dL (0.7-1.3) 06/05/24 10:02
Calcium 9.1 mg/dl (8.4-10.2) 06/05/24 10:02
Total Bilirubin 0.7 mg/dl (0.2-1.3) 06/05/24 10:02
AST 21 U/L (17-59) 06/05/24 10:02
ALT 30 U/L (0-50) 06/05/24 10:02
Alkaline Phosphatase 49 U/L (38-126) 06/05/24 10:02
Lipase 86 U/L (23-300) 06/05/24 10:02
Diagnostic Image Results:
Prior GI Procedures:
EGD:2011,2012,2019,2021(A small hiatal hernia and erythematous mucosa)
Colonoscopy: 2011,2012
Assessment / Plan
-
IMPRESSION
Patient is a 64 year old male with PMH of Essential hypertension taking 10mg lisinopril regularly,diverticulitis and GERD/hiatal hernia stable on 40mg omeprazole in the morning and 40mg famotidine at night.He has been having pain in left lower
quadrant on and off for last one month and is being managed on lines of diverticulitis.
ASSESSMENT
Diverticulitis
Pain in LLQ for one month
Pain associated with left sided back soreness
History of diarrhea one month before
Patient took Metamucil during this month(IBS?)
CT abdomen done on 05/01-
There is mild diverticulosis. There is mild pericolonic stranding about the mid sigmoid colon suggesting acute diverticulitis. There is no evidence of perforation or abscess formation. There is minimal fecal material in the colon
CT abdomen done on 06/05
IMPRESSION:
There is inflammation at the site of previous diverticulitis, mid sigmoid. This is improved compared to the prior study. It is uncertain if this is residual from previous diverticulitis, or recurrent
Patient was on Cipro and Flagyl for one week and then Levaquin for 10 days
Still has residual pain in the LLQ
Patient denies any weight changes,appetite changes,abdominal pain,weakness,dizziness,bleed ,nausea or vomiting
No acute changes on repeat CT-abdomen
GERD/hiatal hernia
Stable on omeprazole and famotidine
Essential hypertension
Continue home dose of lisinopril
PLAN
Continue IV Zosyn
Educate about the diagnosis
Dietary counselling
Advance diet as tolerated
Temperature and WBC charting
-
-
Thank you for consultation and allowing me to participate in the patient's care. Please call the fire protection designer GI physician during the after hours with any questions or concerns.
[2024-06-05 15:31] VITALS: BP 117/73
[2024-06-05] MEDS: ZOSYN 50 IV (17:11)
[2024-06-05] MEDS: PEPCID 40 MG PO (21:03)
[2024-06-05] MEDS: HEPARIN SC (21:09)
[2024-06-05 23:00] VITALS: BP 130/81
[2024-06-06] MEDS: ZOSYN 50 IV ×4 (05:09→16:50)
[2024-06-06 07:15] VITALS: BP 115/68
[2024-06-06 07:15] LABS: % Basophils 0.8 % (0-2); % Eosinophils 1.7 % (0-6); % Immature Granulocytes 0.6 % (0-0.5); % Lymphocytes 30.8 % (20.5-51.1); % Monocytes 7.5 % (1.7-9.3); % Neutrophils 58.6 % (42.2-75.2); Absolute Eosinophils 0.1 10^3/uL (0-0.7); Absolute Lymphocytes 1.6 10^3/uL (1.2-3.4); Absolute Monocytes 0.4 10^3/uL (0.1-0.6); Absolute Neutrophils 3.1 10^3/uL (1.4-6.5); Hematocrit 42.2 % (39.0-52.0); Hemoglobin 14.9 g/dL (13.0-18.0); Mean Corp Hgb Conc. 35.3 g/dL (33.0-37.0); Mean Corpuscular Hgb 30.4 pg (27.0-31.0); Mean Corpuscular Volume 86.1 fL (80.0-94.0); Nucleated Red Blood Cells % 0 % (-); Platelet Count 195 10^3/uL (130-400); Red Cell Dist. Width 12.5 % (11.5-14.5); White Blood Cell Count 5.3 10^3/uL (4.8-10.8)
--- NOTE | 2024-06-06 07:29 | W.PN.HOSP.TC ---
Addendum entered and electronically signed by Aneta Mancilla MD 06/06/24 14:19:
I saw and evaluated the patient independently.I reviewed the resident�s note and agree with findings and plan as documented by Sharmin.
GENERAL: well developed, well nourished, male in no apparent distress
HEENT: NC/AT
HEART: regular rate and rhythm, +S1, +S2
LUNGS : clear to auscultation bilaterally
ABDOM: soft, minimal tenderness LLQ without guarding or rebound, nondistended, + bowel sounds
EXT: no cyanosis, clubbing, or edema
NEUROLOGIC: grossly intact
Persistent versus recurrent diverticulitis---CT abdomen pelvis shows inflammation at site of previous diverticulitis, improved from previous imaging--tolerating low residue diet--IV zosyn to oral augmentin at d/c, would do 14 day course--apprec GI
Essential hypertension--Continue lisinopril
GERD--Continue Protonix and famotidine
Code status--Full code
DVT prophylaxis: Heparin
Original Note:
Today's Communication/Plan
-
.
Assessment / Plan
Assessment / Plan
64-year-old male with past medical history of hypertension, diverticulitis, GERD presented to [facility] on 06/05 with left lower quadrant abdominal pain with concern of residual versus recurrent diverticulitis.
Persistent versus recurrent diverticulitis
CT abdomen pelvis shows inflammation at site of previous diverticulitis, improved from previous imaging
Diet advance to low residue diet
Continue IV Zosyn�patient would like 2 more doses today before discharge.
Discharged on p.o. Augmentin for 2 weeks.
GI on board, input appreciated
Trend temperature and white blood cell count. Currently afebrile and without leukocytosis
Essential hypertension
Continue lisinopril
GERD
Continue Protonix and famotidine
Full code
DVT prophylaxis: Heparin
Low residue diet
Anticipated Discharge: Today
Subjective/Interval History
-
Date of Service: June 06, 2024
64-year-old male with past medical history of hypertension, diverticulitis, GERD presented to [facility] on 06/05 with left lower quadrant abdominal pain. Pain has been ongoing for 1 month. He was last seen at this hospital on 05/01 for
sigmoid diverticulitis. At that time he was started on ciprofloxacin and metronidazole. Symptoms had improved on antibiotics, but shortly after returned. He was started on Levaquin by Dr. Beckman (his GI doctor), however after completing the course
the pain returned once again. Per recommendations of Dr. Beckman, patient return to ER for repeat CT scan evaluation. CT scan on 06/05 showed inflammation at the site of previous diverticulitis, mid sigmoid. Improved from previous study, however
unclear if inflammation is from previous diverticulitis or recurrent. Overnight patient reported no problems, feeling anxious and antsy to leave the hospital. Patient reports that since starting IV antibiotics, left lower pain has not returned and
he is not experiencing any other cramping or discomfort. Patient states he tolerated low residue diet well this morning, but experienced urgency to use the restroom and 30 minutes after meal.
Objective Data
-
Labs:
Laboratory Results
06/06/24
06:47
WBC 5.3
Hgb 14.9
Hct 42.2
Plt Count 195
Sodium Pending
Potassium Pending
Chloride Pending
Carbon Dioxide Pending
BUN Pending
Creatinine Pending
Glucose Pending
Calcium Pending
Total Bilirubin Pending
AST Pending
ALT Pending
Alkaline Phosphatase Pending
Vital Signs:
Vital Signs
Temp Pulse Resp BP Pulse Ox
97.8 F 66 18 130/81 94
06/05/24 23:00 06/05/24 23:00 06/05/24 23:00 06/05/24 23:00 06/05/24 23:00
I&O
06/05/24 06/06/24 06/07/24
06:59 06:59 06:59
Intake Total 720 / 720
Balance 720 / 720
Review of Systems
-
History Source: Patient
Constitutional: Reports No Symptoms
EENT: Reports No Symptoms Reported
Respiratory: Reports No Symptoms
Cardiac: Reports No Symptoms
Abdomen/GI: Reports Abdominal Pain (Currently not bothering him since starting IV antibiotics)
Musculoskeletal: Reports No Symptoms
Skin: Reports No Symptoms
Physical Exam
-
General: Well Developed, Well Nourished, No Apparent Distress, Comfortable and Conversant
HEENT: Normocephalic and Atraumatic
Respiratory: Clear to Auscultation
Cardiac: Regular Rhythm and S1/S2
GI: Soft, Nontender, Nondistended and Normal Bowel Sounds
Musculoskeletal: No Clubbing, No Cyanosis and No Edema
Skin: Warm and Dry
Psych: Calm
Data Reviewed
-
CT Scan: Report Reviewed by me
Labs: Labs Reviewed by me and Discussed with Physician
Old Records: Reviewed
[2024-06-06 07:53] LABS: ALT (SGPT) 29 U/L (0-50); AST (SGOT) 20 U/L (17-59); Albumin 4.2 g/dl (3.5-5.0); Alkaline Phosphatase 57 U/L (38-126); Blood Urea Nitrogen 12 mg/dl (9-20); Calcium 9.2 mg/dl (8.4-10.2); Carbon Dioxide 25 mmol/L (22-30); Chloride 103 mmol/L (98-107); Estimated Creatinine Clearance 87 ml/min; Glucose 99 mg/dl (70-99); Potassium 4.4 mmol/L (3.5-5.1); Sodium 139 mmol/L (135-145); Total Protein 6.6 g/dl (6.3-8.2); eGFR > 60.00
[2024-06-06] MEDS: VISBIOME 1 CAP PO (08:01)
[2024-06-06] MEDS: VITAMIN C 500 MG PO (08:02)
[2024-06-06] MEDS: VITAMIN E 400 UNITS PO (08:02)
[2024-06-06] MEDS: VITAMIN B-12 500 MCG PO (08:02)
[2024-06-06] MEDS: VITAMIN D3 (cholecalciferol) 25 MCG PO (08:02)
[2024-06-06] MEDS: THERAGRAN 1 TABLET PO (08:02)
[2024-06-06] MEDS: PROTONIX 40 MG PO (08:02)
[2024-06-06] MEDS: ZESTRIL 10 MG PO (08:03)
[2024-06-06] MEDS: HEPARIN 5000 UNITS SC (08:04)
--- NOTE | 2024-06-06 10:58 | W.PN.GI.CBS2 ---
Addendum entered and electronically signed by Fantasma Kuo MD 06/06/24 16:27:
correction: ' The medical transcriptionist note was reviewed and I agree with the note'
Addendum entered and electronically signed by Fantasma Kuo MD 06/06/24 13:31:
I saw and examined the patient.
The DIRECTOR ENGINEERING's note was reviewed and I agree with the note.
Denies any abdominal pain today. Tolerating diet.
--Acute uncomplicated diverticulitis -failed outpatient oral antibiotic. Repeat CT abdomen-improved diverticulitis. No complication. last colonoscopy 2012.
plan
Okay to discharge home on oral antibiotic ( augmentin for 10 days)
Low residual diet for 1 week
Follow-up with Dr. Beckman as outpatient- will s/o
Original Note:
Today's Communication / Plan
-
Shift low residue diet
Counseled patient about the diagnosis, lifestyle modifications, prognosis
Can be shifted to oral antibiotics
Assessment / Plan
-
IMPRESSION
Patient is a 64 year old male with PMH of Essential hypertension taking 10mg lisinopril regularly,diverticulitis and GERD/hiatal hernia stable on 40mg omeprazole in the morning and 40mg famotidine at night.He has been having pain in left lower
quadrant on and off for last one month and is being managed on lines of diverticulitis.
ASSESSMENT
Diverticulitis
Reports improvement in pain today
Patient has good appetite
Normal bowel sounds
Normal bowel movements
No fever, vomiting, abdominal pain or leukocytosis
CT ABDOMEN/[id number]:There is inflammation at the site of previous diverticulitis, mid sigmoid. This is improved compared to the prior study. It is uncertain if this is residual from previous diverticulitis, or recurrent.
GERD/hiatal hernia
Stable on omeprazole and famotidine
Essential hypertension
Continue home dose of lisinopril
PLAN
Counseled patient about lifestyle modifications
Counseled about the diagnosis and its prognosis
Can shift to oral antibiotics
Patient can be discharged once he tolerates the low residue diet and is shifted to oral antibiotics
Colonoscopy scheduled in June
Subjective
Subjective
Date of Service: June 06, 2024
No active issues, reports improvement in pain
Objective
Data Reviewed
Laboratory Data:
Laboratory Results
06/06/24 06:47
06/06/24 06:47
Laboratory Results
Total Bilirubin 1.0 mg/dl (0.2-1.3) 06/06/24 06:47
AST 20 U/L (17-59) 06/06/24 06:47
ALT 29 U/L (0-50) 06/06/24 06:47
Alkaline Phosphatase 57 U/L (38-126) 06/06/24 06:47
Lipase 86 U/L (23-300) 06/05/24 10:02
Vital Signs and I&O:
Vital Signs
Temp Pulse Resp BP Pulse Ox
98.1 F 69 18 115/68 97
06/06/24 07:15 06/06/24 08:03 06/06/24 07:15 06/06/24 08:03 06/06/24 07:15
I&O
06/05/24 06/06/24 06/07/24
06:59 06:59 06:59
Intake Total 720 / 720
Balance 720 / 720
Physical Exam
Physical Exam
HEENT: Anicteric
Cardiology: Normal Sinus Rhythm, S1 and S2
Pulmonary: Clear
GI: Soft, Non Tender and Normal Bowel Sounds
Extremities: No Edema
Neuro: Non Focal
--- NOTE | 2024-06-06 13:19 | W.DCSUMMARY ---
Addendum entered and electronically signed by Aneta Mancilla MD 06/06/24 19:41:
Read, reviewed, and agree. See same day progress note for additional details. Time spent coordinating care, DC planning, review of DC plan of care with resident, transition of care, review of records in EMR, med rec, consults, notes, d/w
consultants, nursing, family, and CM = 30 minutes
Original Note:
Discharge Summary
Discharge Data
Date of Admission: 06/05/24
Date of Discharge: 06/06/24
Total time spent discharging patient (in min): 30
-
Pending Results: No
Hospital Course
Presenting symptom: Left lower quadrant pain
Admission diagnosis: Diverticulitis
Hospital course:64-year-old male with past medical history of hypertension, diverticulitis, GERD presented to [facility] on 06/05 with left lower quadrant abdominal pain. Pain has been ongoing for 1 month. He was last seen at this
hospital on 05/01 for sigmoid diverticulitis. Diverticulitis infection/symptom management failed on ciprofloxacin and metronidazole as well as Levaquin. After return of pain, per recommendations of Dr. Beckman, patient returned to ER for repeat CT
scan evaluation. CT scan on 06/05 showed inflammation at the site of previous diverticulitis, mid sigmoid. Improved from previous study, however unclear if inflammation is from previous diverticulitis or recurrent. During admission, patient was
started on IV Zosyn and tolerated diet progression well without recurrence of pain. Decision made to discharge patient on oral Augmentin.
1. Persistent versus recurrent diverticulitis
Please take oral Augmentin twice a day for 10 days
If lower abdominal pain recurs consider following up with colorectal surgery for further management
2. Essential hypertension
Continue lisinopril
3. GERD
Continue Protonix and famotidine
-----
Imaging reviewed during admission:
CT(06/05)
IMPRESSION:
There is inflammation at the site of previous diverticulitis, mid sigmoid. This is improved compared to the prior study. It is uncertain if this is residual from previous diverticulitis, or recurrent.
Discharge Plan
-
Patient Disposition: Home (Routine Discharge)
Discharge Diagnosis/Procedures: Diverticulitis
Condition: Good
Diet: No restrictions and As tolerated
Activity: No restrictions and As tolerated
Driving Restrictions: As prior to admission
Bathing Restrictions: None
Instructions: Diverticulitis (DC)
Referrals:
Sanjiv Huggins MD [Active] - As needed
Yeny Spencer MD [Family Provider] - in one to two weeks
Additional Discharge Medication Instructions: Continue to monitor left lower abdominal pain. If progresses consider seeing colorectal surgery for outpatient management.
Prescriptions:
New
amoxicillin-pot clavulanate 875-125 mg tablet
1 tab PO BID Qty: 20 0RF
Continued
lisinopril 10 MG tablet
10 mg PO DAILY
famotidine 40 mg Tablet
40 mg PO HS
therapeutic multivitamin Tablet
1 tab PO DAILY
cyanocobalamin (vitamin B-12) 500 mcg Tablet
500 mcg PO DAILY
ascorbic acid (vitamin C) [Vitamin C] 500 mg Tablet
500 mg PO DAILY
pantoprazole 40 mg Tablet,Delayed Release (Dr/Ec)
40 mg PO DAILY
montelukast 10 mg Tablet
10 mg PO DAILYPRN PRN (Reason: allergies)
diphenhydramine-acetaminophen [Acetaminophen PM] 25-500 mg Tablet
1 tab PO HS PRN (Reason: sleep)
vitamin E 268 mg (400 unit) Capsule
268 mg PO DAILY
cholecalciferol (vitamin D3) [Vitamin D3] 25 mcg (1,000 unit) Tablet
25 mcg PO DAILY
Visbiome 112.5 billion cell Capsule
1 cap PO DAILY
Held
psyllium Packet
1 packet PO DAILY
Hold Instructions: Resume on 07/04/24. Continue to hold Metamucil as diverticulitis resolves
Discharge Orders:
Discharge Patient (As Directed); Ordered 06/06/24
Ordered By: Kristine Finney
Discharge Date and Time
Print Language: LUXEMBOURGISH
--- NOTE | 2024-06-06 14:01 | CM ---
Patient seen at bedside with physicians and patient . Patient states that he is retired and would be willing to stay for several more doses of medicine. Patient has no DME at home and lives with in a split level home. Patient PCP is "Breezy"Ramy and he uses the [facility] on [address] in [place]. Patient plan is for discharge home with no needs. CM will continue to follow for discharge planning needs.
Plan; home with no needs
[2024-06-06 15:05] VITALS: BP 101/71
== END 2024-06-06 17:58 | disposition home or self-care (01) | DRG 392 ==
LOC: 3 WEST ACU 12:43
PROVIDERS: Physician Assistant; ADMITTING PHYSICIAN Hospitalist; ATTENDING PHYSICIAN Internal Medicine; CONSULT PHYSICIAN Internal Medicine Gastroenterology; EMERGENCY PHYSICIAN Emergency Medicine; FAMILY PHYSICIAN Family Medicine
DX: K57.32 Diverticulitis of large intestine without perforation or abscess without bleeding (principal); I10 Essential (primary) hypertension; K21.9 Gastro-esophageal reflux disease without esophagitis; K44.9 Diaphragmatic hernia without obstruction or gangrene; Z88.2 Allergy status to sulfonamides; Z88.8 Allergy status to other drugs, medicaments and biological substances; Z87.891 Personal history of nicotine dependence; Z79.899 Other long term (current) drug therapy; Z79.2 Long term (current) use of antibiotics
CPT/HCPCS: 74177; 80053; 81003; 83690; 85025; 86803; 96375; 99285; Q9967

== ENCOUNTER 2024-07-05 06:24 | Day surgery (SDC) | payer BC, SELFPAY | END 2024-07-05 11:32 | disposition home or self-care (01) | LOC: GI 06:24 | PROVIDERS: ATTENDING PHYSICIAN Internal Medicine | DX: K57.32 Diverticulitis of large intestine without perforation or abscess without bleeding (principal); K22.89 Other specified disease of esophagus; K44.9 Diaphragmatic hernia without obstruction or gangrene; K31.89 Other diseases of stomach and duodenum; K21.9 Gastro-esophageal reflux disease without esophagitis | CPT/HCPCS: 45378; 43239; 88305; 88342 ==

== ENCOUNTER 2024-08-16 06:01 | Inpatient (IN) | payer BC, SELFPAY ==
[2024-08-07 08:50] LABS: Hemoglobin 15.2 g/dL (13.0-18.0); Mean Corp Hgb Conc. 35.3 g/dL (33.0-37.0); Mean Corpuscular Hgb 30.1 pg (27.0-31.0); Mean Corpuscular Volume 85.1 fL (80.0-94.0); Mean Platelet Volume 10.8 fL (7.4-10.4); Platelet Count 184 10^3/uL (130-400); Red Blood Cell Count 5.05 10^6/uL (4.70-6.10); Red Cell Dist. Width 12.9 % (11.5-14.5); White Blood Cell Count 5.4 10^3/uL (4.8-10.8)
[2024-08-07 08:55] LABS: INR 0.89; PT 12.4 Sec (11.4-14.6)
[2024-08-07 09:12] LABS: ALT (SGPT) 40 U/L (0-50); AST (SGOT) 27 U/L (17-59); Albumin 4.5 g/dl (3.5-5.0); Alkaline Phosphatase 65 U/L (38-126); Blood Urea Nitrogen 13 mg/dl (9-20); Calcium 9.2 mg/dl (8.4-10.2); Carbon Dioxide 29 mmol/L (22-30); Chloride 103 mmol/L (98-107); Glucose 123 mg/dl (70-99); Potassium 4.5 mmol/L (3.5-5.1); Sodium 138 mmol/L (135-145); Total Bilirubin 0.5 mg/dl (0.2-1.3); Total Protein 7.1 g/dl (6.3-8.2); eGFR > 60.00
[2024-08-07 10:47] LABS: Glycohemoglobin (HgbA1c) 5.6 % (4.0-5.6)
[2024-08-07 14:30] VITALS: BMI 31.1
[2024-08-16] VITALS (20 sets, daily range): BP systolic 40–150; BP diastolic 72–92; BMI 31.1
[2024-08-16] MEDS: TYLENOL 1000 MG PO (06:30)
[2024-08-16] MEDS: ENTEREG 12 MG PO (06:30)
[2024-08-16] MEDS: NEURONTIN 600 MG PO (06:30)
[2024-08-16] MEDS: HEPARIN 5000 UNITS SC (06:31)
[2024-08-16] MEDS: NORMOSOL-R/PLASMALYTE-A 1000 IV ×2 (06:49→16:58)
--- NOTE | 2024-08-16 11:47 | W.IMMPOSTOP ---
Surgical Immed Post Op Note
-
Primary Surgeon: Glen Huggins MD
Assisting Surgeon: VALE Lindsay
Pre-op Diagnosis: sigmoid diverticulitis
Post-op Diagnosis: same
Procedure Performed: 1) robotic sigmoidectomy 2) flexible sigmoidoscopy
Anesthesia Type: general plus local
Specimen / Cultures: sigmoid colon
Estimated Blood Loss: 50 cc
Complications: no immediate
Operative Findings: mildly thickened mid sigmoid
#19 Wil in pelvis.
Keating/stents/ICG by Dr. Saunders. R stent removed at end of case.
Will send to med surg.
[2024-08-16 12:13] LABS: % Basophils 0.4 % (0-2); % Eosinophils 0.1 % (0-6); % Immature Granulocytes 0.8 % (0-0.5); % Lymphocytes 10.1 % (20.5-51.1); % Monocytes 1.8 % (1.7-9.3); % Neutrophils 86.8 % (42.2-75.2); Absolute Basophils 0.1 10^3/uL (0-0.2); Absolute Immature Granulocytes 0.2 10^3/uL (0-0.05); Absolute Monocytes 0.4 10^3/uL (0.1-0.6); Absolute Neutrophils 16.9 10^3/uL (1.4-6.5); Hematocrit 44.5 % (39.0-52.0); Hemoglobin 15.6 g/dL (13.0-18.0); Mean Corp Hgb Conc. 35.1 g/dL (33.0-37.0); Mean Corpuscular Hgb 29.9 pg (27.0-31.0); Mean Corpuscular Volume 85.4 fL (80.0-94.0); Mean Platelet Volume 9.7 fL (7.4-10.4); Nucleated Red Blood Cells % 0 % (-); Platelet Count 227 10^3/uL (130-400); Red Blood Cell Count 5.21 10^6/uL (4.70-6.10); Red Cell Dist. Width 13.2 % (11.5-14.5); White Blood Cell Count 19.5 10^3/uL (4.8-10.8)
[2024-08-16] MEDS: DILAUDID 0.5 MG IV ×6 (12:23→22:23)
[2024-08-16] MEDS: TYLENOL PO (13:23)
[2024-08-16 15:28] LABS: Blood Urea Nitrogen 14 mg/dl (9-20); Calcium 8.6 mg/dl (8.4-10.2); Carbon Dioxide 17 mmol/L (22-30); Chloride 99 mmol/L (98-107); Estimated Creatinine Clearance 115 ml/min; Glucose 171 mg/dl (70-99); Potassium 4.5 mmol/L (3.5-5.1); Sodium 133 mmol/L (135-145); eGFR > 60.00
[2024-08-16] MEDS: TYLENOL 650 MG PO ×2 (16:58→20:11)
--- NOTE | 2024-08-16 17:05 | PTCARENOTE ---
Pt arrived to 2S in bed. Full assessment completed. IVF infusing per order. Nasal cannula maintained. Abdominal incisions C/D/I, glued and AVIONICS TECHNICIAN. JODIE drain site with a small amount of shadowing, unchanged per CAD PROGRAMMER. Pt instructed to ring for
assistance getting OOB, verbalized understanding. Keating catheter clean and intact draining brown urine. Bed locked and in the lowest position, safety maintained. Oriented to room and call victoria kessler.
[2024-08-17] MEDS: TYLENOL PO (01:00)
[2024-08-17] MEDS: DILAUDID 0.5 MG IV ×2 (02:50→10:32)
[2024-08-17] MEDS: DESYREL 50 MG PO ×2 (03:04→19:33)
[2024-08-17] MEDS: TYLENOL 650 MG PO ×5 (03:06→19:33)
[2024-08-17] MEDS: PERCOCET 5/325 1 TABLET PO (04:00)
[2024-08-17] MEDS: NORMOSOL-R/PLASMALYTE-A 1000 IV (04:00)
[2024-08-17 04:12] VITALS: BP 141/74
[2024-08-17 06:26] LABS: % Basophils 0.1 % (0-2); % Immature Granulocytes 0.4 % (0-0.5); % Lymphocytes 10.2 % (20.5-51.1); % Neutrophils 80.3 % (42.2-75.2); Absolute Immature Granulocytes 0.1 10^3/uL (0-0.05); Absolute Lymphocytes 1.5 10^3/uL (1.2-3.4); Absolute Monocytes 1.3 10^3/uL (0.1-0.6); Hematocrit 38.7 % (39.0-52.0); Mean Corp Hgb Conc. 36.2 g/dL (33.0-37.0); Mean Corpuscular Hgb 30.6 pg (27.0-31.0); Mean Corpuscular Volume 84.7 fL (80.0-94.0); Mean Platelet Volume 10.4 fL (7.4-10.4); Nucleated Red Blood Cells % 0 % (-); Platelet Count 205 10^3/uL (130-400); Red Blood Cell Count 4.57 10^6/uL (4.70-6.10); Red Cell Dist. Width 13.3 % (11.5-14.5)
[2024-08-17 06:44] LABS: Blood Urea Nitrogen 12 mg/dl (9-20); Carbon Dioxide 24 mmol/L (22-30); Chloride 101 mmol/L (98-107); Estimated Creatinine Clearance > 125 ml/min; Glucose 112 mg/dl (70-99); Potassium 4.3 mmol/L (3.5-5.1); Sodium 135 mmol/L (135-145); eGFR > 60.00
[2024-08-17 07:33] LABS: Hepatitis C Antibody Negative (Negative)
[2024-08-17 08:07] VITALS: BP 140/75
[2024-08-17] MEDS: ZESTRIL 10 MG PO (08:16)
[2024-08-17] MEDS: PROTONIX IV 40 MG IV (08:19)
[2024-08-17] MEDS: NSS (PRESERVATIVE FREE) 10 ML IV (08:19)
--- NOTE | 2024-08-17 11:05 | W.PN.CRS1 ---
Today's Communication / Plan
-
Full liquids
DC Keating
Stent removed
Lovenox
Assessment/Plan
-
POD#1 1) robotic sigmoidectomy 2) flexible sigmoidoscopy
WBC- 15.0 (19.5),-vitals normal
-Advance diet to full's
-Stent #2 removed at bedside. DC Keating.
-Teds and SCDs in place. Add Lovenox for DVT prophylaxis.
-Continue JODIE drain until discharge.
-OR pathology pending
-Okay to shower
-DC IV fluids when tolerating a diet.
-Pain control: Tylenol and Toradol standing, Dilaudid as needed.
Subjective Data
Procedure
08/16/24- 1) robotic sigmoidectomy 2) flexible sigmoidoscopy
Subjective Data
Date of Service: August 17, 2024
Patient states he has some abdominal pain. He is having flatus but no bowel movements yet. He would like his Keating out. He has been tolerating clears and is hungry.
Objective Data
-
Vital Signs
Temp Pulse Resp BP Pulse Ox
97.3 F 88 18 140/75 96
08/17/24 08:07 08/17/24 08:07 08/17/24 08:07 08/17/24 08:07 08/17/24 08:39
Intake & Output
08/16/24 08/17/24 08/18/24
06:59 06:59 06:59
Intake Total 3270 / 3270 225 / 225
Output Total 3640 / 3640 1620 / 1620
Balance -370 / -370 -1395 / -1395
Intake:
Oral fluids 1520 / 1520
IV fluids (Total) 1750 / 1750 225 / 225
Normosol 700 / 700
Output:
Drain Output (Total) 140 / 140 20 / 20
Right Lower Abdomen Baron- 140 / 140 20 / 20
Virk
Urine, Keating 3500 / 3500 1600 / 1600
Lab Results
08/17/24 05:00
08/17/24 05:00
Physical Exam
-
General: No Acute Distress and AOx3
Abdomen: Soft, Non Distended, Tender (Mild around incisions) and Other (JODIE drain bloody serous)
Skin: Warm and Dry
Incision: Clear, Dry, Intact
[2024-08-17 11:07] VITALS: BP 101/67
--- NOTE | 2024-08-17 11:52 | CM ---
Pt seen bedside w/ spouse. Initial assessment completed.
Pt reports that he lives w/ spouse in a 2STH- 6 steps to enter. Pt reports he is independent and does not require the use of any devices to ambulate. Pt did not identify any DME. Pt denies SNF hx, pt states he engaged in OP therapy at [facility]
following his knee replacement. Pt stated he did have VN services in the home that was arranged through orthopedic office but does not know the provider.
Address, point of contact and insurance verified
PCP: Dr. Spencer
Pharmacy: [facility]
Plan: CM will cont to follow hospital course
[2024-08-17] MEDS: ROXICODONE 10 MG PO ×2 (13:06→23:50)
[2024-08-17 15:51] VITALS: BP 125/80
[2024-08-17] MEDS: LOVENOX 40 MG SC (17:31)
[2024-08-17] MEDS: ROXICODONE 5 MG PO (17:42)
[2024-08-17 23:15] VITALS: BP 126/72
[2024-08-18] MEDS: TYLENOL PO ×2 (01:00→05:00)
[2024-08-18] MEDS: ROXICODONE 5 MG PO (05:22)
[2024-08-18 06:00] VITALS: BMI 30.9
[2024-08-18 07:40] VITALS: BP 107/58
[2024-08-18 07:53] LABS: % Basophils 0.5 % (0-2); % Eosinophils 0.8 % (0-6); % Immature Granulocytes 0.2 % (0-0.5); % Lymphocytes 27.6 % (20.5-51.1); % Monocytes 9.7 % (1.7-9.3); % Neutrophils 61.2 % (42.2-75.2); Absolute Eosinophils 0.1 10^3/uL (0-0.7); Absolute Lymphocytes 2.3 10^3/uL (1.2-3.4); Absolute Monocytes 0.8 10^3/uL (0.1-0.6); Absolute Neutrophils 5.1 10^3/uL (1.4-6.5); Hematocrit 38.5 % (39.0-52.0); Hemoglobin 13.3 g/dL (13.0-18.0); Mean Corp Hgb Conc. 34.5 g/dL (33.0-37.0); Mean Corpuscular Volume 86.7 fL (80.0-94.0); Mean Platelet Volume 10.1 fL (7.4-10.4); Nucleated Red Blood Cells % 0 % (-); Platelet Count 175 10^3/uL (130-400); Red Blood Cell Count 4.44 10^6/uL (4.70-6.10); Red Cell Dist. Width 13.4 % (11.5-14.5); White Blood Cell Count 8.3 10^3/uL (4.8-10.8)
[2024-08-18 08:22] LABS: Blood Urea Nitrogen 12 mg/dl (9-20); Calcium 8.7 mg/dl (8.4-10.2); Carbon Dioxide 28 mmol/L (22-30); Chloride 101 mmol/L (98-107); Estimated Creatinine Clearance 101 ml/min; Glucose 98 mg/dl (70-99); Potassium 4.3 mmol/L (3.5-5.1); Sodium 135 mmol/L (135-145); eGFR > 60.00
[2024-08-18] MEDS: ZESTRIL PO (08:37)
[2024-08-18] MEDS: NSS (PRESERVATIVE FREE) 10 ML IV (08:38)
[2024-08-18] MEDS: TYLENOL 650 MG PO ×4 (08:38→19:39)
[2024-08-18] MEDS: PROTONIX IV 40 MG IV (08:38)
[2024-08-18] MEDS: ROXICODONE 10 MG PO (10:30)
[2024-08-18 15:07] VITALS: BP 115/78
--- NOTE | 2024-08-18 16:01 | W.PN.CRS1 ---
Addendum entered and electronically signed by Hussein Montilla MD 08/18/24 19:24:
I saw and examined the patient.
The TELETYPE OPERATOR's note was reviewed and I agree with the note.
Comment:
No overnight events. No N/V, passing flatus and BMs. Having fair amount of pain near RLQ incision.
AFVSS, ABD soft, nondistended, appropriately tender; incisions well-approximated without erythema or drainage
WBC 8.3 from 15.0, Hb 13.3 from 14.0, CR 0.9
� Advance to low residue
� Continue pain control with Tylenol,Dilaudid and oxycodone as needed
� Continue DVT PPx
� Continue JODIE to bulb suction, removed prior to DC
� If tolerates low residue and pain controlled, okay for DC; suspect tomorrow
Original Note:
Today's Communication / Plan
-
Pain control
Advance diet
Assessment/Plan
-
64 yo male with a h/o sigmoid diveriticulitis now POD#2 1) robotic sigmoidectomy 2) flexible sigmoidoscopy
Reactive leukocytosis noted post operatively, now resolved
Labs stable
Good evidence of bowel recovery
Pain control still an issue
-Advance diet to low residue
-Scheduled and prn analagesics
-TEDs/SCD's with lovenox for vte ppx
-Continue JODIE drain until discharge.
-OR pathology pending
-Okay to shower
-Pain control: Tylenol and Toradol standing, oxycodone Dilaudid as needed
-C/W home meds
Tentative d/c tonight vs tomorrow pending pain control and diet tolerance
Subjective Data
Procedure
08/16/24- 1) robotic sigmoidectomy 2) flexible sigmoidoscopy
Subjective Data
Date of Service: August 18, 2024
Patient seen and examined at bedside with Dr. Montilla. Denies n/v. Passing stools and gas. Pain to the RLQ has been severe and limiting movement. Voiding well.
Objective Data
-
Vital Signs
Temp Pulse Resp BP Pulse Ox
98.2 F 71 16 115/78 98
08/18/24 15:07 08/18/24 15:07 08/18/24 15:07 08/18/24 15:07 08/18/24 15:07
Intake & Output
08/17/24 08/18/24 08/19/24
06:59 06:59 06:59
Intake Total 3270 / 3270 2565 / 2565
Output Total 3640 / 3640 4130 / 4130
Balance -370 / -370 -1565 / -1565
Intake:
Oral fluids 1520 / 1520 2340 / 2340
IV fluids (Total) 1750 / 1750 225 / 225
Normosol 700 / 700
Output:
Drain Output (Total) 140 / 140 130 / 130
Right Lower Abdomen Baron- 140 / 140 130 / 130
Virk
Urine, [place] 3500 / 3500 1600 / 1600
Urine, Voided 2400 / 2400
Other:
Number of approximated MODERATE 1
amounts of urine
Number of unmeasured liquid
stools
Rectum 1
Lab Results
08/18/24 07:17
08/18/24 07:17
Physical Exam
-
General: No Acute Distress and AOx3
Abdomen: Soft, Non Distended, Tender (Mild around incisions, most tender near right sided incisions), No Guarding, No Rebound and Other (JODIE drain bloody serous)
Skin: Warm and Dry
Incision: Clear, Dry, Intact and Other (JODIE with SSF)
[2024-08-18] MEDS: LOVENOX 40 MG SC (18:08)
[2024-08-18] MEDS: DESYREL 50 MG PO (19:41)
[2024-08-18 23:09] VITALS: BP 129/88
[2024-08-19] MEDS: TYLENOL PO (00:45)
[2024-08-19] MEDS: TYLENOL 650 MG PO ×2 (04:39→07:58)
[2024-08-19 06:00] VITALS: BMI 29.9
--- NOTE | 2024-08-19 07:38 | W.PN.CRS1 ---
Addendum entered and electronically signed by Hussein Montilla MD 08/19/24 15:11:
I did not see/examine the patient. The patient was discussed with Cassy Us NP and agreed with her plan. The note was reviewed and I agree.
Original Note:
Today's Communication / Plan
-
dispo planning
Assessment/Plan
-
64 yo male with a h/o sigmoid diverticulitis now POD#3 1) robotic sigmoidectomy 2) flexible sigmoidoscopy
AFVSS
Pain much improved
JODIE removed on 08/18
-Continue low residue diet
-Scheduled and prn analgesics
-TEDs/SCD's with lovenox for vte ppx
-OR pathology pending
-Okay to shower
-Pain control: Tylenol and Toradol standing, oxycodone as needed
-C/W home meds
D/C to home
Subjective Data
Procedure
08/16/24- 1) robotic sigmoidectomy 2) flexible sigmoidoscopy
Subjective Data
Date of Service: August 19, 2024
Patient seen and examined at bedside. Denies n/v. Eating breakfast in the chair. Pain much improved today. Passing flatus. BM yesterday but not today.
Objective Data
-
Vital Signs
Temp Pulse Resp BP Pulse Ox
98.4 F 64 16 129/88 95
08/18/24 23:09 08/18/24 23:09 08/18/24 23:09 08/18/24 23:09 08/18/24 23:09
Intake & Output
08/18/24 08/19/24 08/20/24
06:59 06:59 06:59
Intake Total 2565 / 2565 660 / 660
Output Total 4130 / 4130 40 / 40
Balance -1565 / -1565 620 / 620
Intake:
Oral fluids 2340 / 2340 660 / 660
IV fluids (Total) 225 / 225
Output:
Drain Output (Total) 130 / 130 40 / 40
Right Lower Abdomen Baron- 130 / 130 40 / 40
Virk
Urine, [place] 1600 / 1600
Urine, Voided 2400 / 2400
Other:
Number of approximated MODERATE 1 5
amounts of urine
Number of unmeasured liquid
stools
Rectum 1
Lab Results
08/18/24 07:17
08/18/24 07:17
Physical Exam
-
General: No Acute Distress and AOx3
Abdomen: Soft, Distended (minimally), Non Tender, No Guarding and No Rebound
Skin: Warm and Dry
Incision: Clear, Dry, Intact and Other (JODIE with SSF)
--- NOTE | 2024-08-19 07:39 | W.DCSUMMARY ---
Discharge Summary
Discharge Data
Date of Admission: 08/16/24
Date of Discharge: 08/19/24
-
Pending Results: No
Hospital Course
Mr Farmer is a 64 yo male who has a history of sigmoid diverticulitis who presented for operative management with robotic sigmoidectomy preformed. He tolerated the procedure without complication. Diet was able to be advanced post operatively with
good bowel recovery. Pain was well controlled prior to discharge. He voided well after removal of perioperative flores. JODIE drain placed intraoperatively was removed prior to discharge.
Discharge Plan
-
Patient Disposition: Home (Routine Discharge)
Discharge Diagnosis/Procedures: 1) robotic sigmoidectomy 2) flexible sigmoidoscopy
Condition: Good
Diet: Low Residue
Activity: No strenuous activity
Additional Activity: No lifting over 10 pounds (gallon of milk)
Driving Restrictions: No driving for 1 week
Bathing Restrictions: OK to Shower
Wound Care: Allow glue to naturally fall off. Do not pick at incision.
Instructions: Low-fiber diet
Referrals:
Sanjiv Huggins MD [Active] - in two weeks
Yeny Spencer MD [Family Provider] -
Additional Discharge Medication Instructions: Tylenol as needed for pain. Maximum Tylenol 24 hours is 4000 mg.
Prescriptions:
New
oxycodone 5 mg tablet
5 mg PO Q4HPRN PRN (Reason: breakthrough/severe pain) Qty: 20 0RF
Continued
lisinopril 10 MG tablet
10 mg PO DAILY
famotidine 40 mg Tablet
40 mg PO HSPRN PRN (Reason: GERD)
cyanocobalamin (vitamin B-12) 500 mcg Tablet
500 mcg PO DAILY
ascorbic acid (vitamin C) [Vitamin C] 500 mg Tablet
500 mg PO DAILY
pantoprazole 40 mg Tablet,Delayed Release (Dr/Ec)
40 mg PO DAILY
montelukast 10 mg Tablet
10 mg PO DAILYPRN PRN (Reason: allergies)
diphenhydramine-acetaminophen [Acetaminophen PM] 25-500 mg Tablet
1 tab PO HS PRN (Reason: sleep)
vitamin E 268 mg (400 unit) Capsule
268 mg PO DAILY
cholecalciferol (vitamin D3) [Vitamin D3] 25 mcg (1,000 unit) Tablet
25 mcg PO DAILY
Visbiome 112.5 billion cell Capsule
1 cap PO DAILY
trazodone 50 mg Tablet
50 mg PO HS PRN (Reason: anxiety)
Discharge Orders:
Discharge Patient (As Directed); Ordered 08/19/24
Ordered By: Cassy Us
Discharge Date and Time
Print Language: SINHALA
[2024-08-19 07:45] VITALS: BP 163/89
[2024-08-19 07:50] VITALS: BP 163/89
[2024-08-19] MEDS: ZESTRIL 10 MG PO (07:58)
[2024-08-19] MEDS: PROTONIX 40 MG PO (07:58)
[2024-08-19 08:30] VITALS: BP 151/95; BP 153/88; BP 158/88; PULSE 85; PULSE 93; PULSE 96
--- NOTE | 2024-08-19 08:44 | PTCARENOTE ---
RN reviewed d/c paperwork with pt this am. After reviewing paperwork pt informed RN ' I'm feeling dizzy when i stand up and when i turn my head'. Pt instructed to sit and ring for assistance. Erna Us VP [employer] notified and instructed RN to obtain
orthostatic vital signs. Supine 153/88 HR 85 sitting 158/88 HR 93 standing 151/95 HR 96. Signs reported to Erna Us who recommended keeping pt to observe until noon. Pt and eager to leave stating ' i feel fine, i think really think its my
sinuses'. Erna Us aware and informed RN to educate pt to be cautious and return if symptoms worsen. Pt and verbalized understanding. Pt electing to be discharged, awaiting transport.
== END 2024-08-19 09:37 | disposition home or self-care (01) | DRG 331 ==
LOC: 2 SOUTH 06:01
PROVIDERS: Physician Assistant; ADMITTING PHYSICIAN Surgery; FAMILY PHYSICIAN Family Medicine
PROC: 0DTN4ZZ Resection of Sigmoid Colon, Percutaneous Endoscopic Approach (ICD-10-PCS; 2024-08-17)
PROC: 0DJD8ZZ Inspection of Lower Intestinal Tract, Via Natural or Artificial Opening Endoscopic (ICD-10-PCS; 2024-08-17)
PROC: 8E0W4CZ Robotic Assisted Procedure of Trunk Region, Percutaneous Endoscopic Approach (ICD-10-PCS; 2024-08-17)
DX: K57.32 Diverticulitis of large intestine without perforation or abscess without bleeding (principal); I10 Essential (primary) hypertension; K21.9 Gastro-esophageal reflux disease without esophagitis; F41.9 Anxiety disorder, unspecified; Z88.2 Allergy status to sulfonamides; Z96.651 Presence of right artificial knee joint; Z79.899 Other long term (current) drug therapy
CPT/HCPCS: 88307; 36415; 80048; 80053; 83036; 85025; 85027; 85610; 85730; 86803; 86850; 86900; 86901; 93005; C1769; J1335

== ENCOUNTER → 2024-11-13 09:17 | Outpatient (REF) | payer BC, SELFPAY | LOC: HWRAD 09:17 | PROVIDERS: ATTENDING PHYSICIAN Specialist; FAMILY PHYSICIAN Family Medicine | DX: M75.122 Complete rotator cuff tear or rupture of left shoulder, not specified as traumatic (principal) | CPT/HCPCS: 73200 ==

== ENCOUNTER 2024-12-13 07:14 | Outpatient (RCR) | payer BC, SELFPAY | END 2024-12-13 23:59 | disposition home or self-care (01) | LOC: RPT 07:14 | PROVIDERS: ATTENDING PHYSICIAN Physician Assistant Surgical; FAMILY PHYSICIAN Family Medicine | DX: M19.012 Primary osteoarthritis, left shoulder (principal); M75.122 Complete rotator cuff tear or rupture of left shoulder, not specified as traumatic; Z73.6 Limitation of activities due to disability | CPT/HCPCS: 97010; 97110; 97140; 97161; 97530 ==

== ENCOUNTER 2025-01-10 10:49 | Outpatient (RCR) | payer BC, SELFPAY | END 2025-01-10 23:59 | disposition home or self-care (01) | LOC: RPT 10:49 | PROVIDERS: ATTENDING PHYSICIAN Physician Assistant Surgical; FAMILY PHYSICIAN Family Medicine | DX: M19.012 Primary osteoarthritis, left shoulder (principal); Z47.1 Aftercare following joint replacement surgery (principal); M75.122 Complete rotator cuff tear or rupture of left shoulder, not specified as traumatic; Z73.6 Limitation of activities due to disability; M62.81 Muscle weakness (generalized); Z96.612 Presence of left artificial shoulder joint | CPT/HCPCS: 97010; 97110; 97140 ==

== ENCOUNTER 2025-02-13 07:09 | Outpatient (RCR) | payer BC, SELFPAY | END 2025-02-13 23:59 | disposition home or self-care (01) | LOC: RPT 07:09 | PROVIDERS: ATTENDING PHYSICIAN Physician Assistant Surgical; FAMILY PHYSICIAN Family Medicine | DX: Z47.1 Aftercare following joint replacement surgery (principal); Z96.612 Presence of left artificial shoulder joint; M19.012 Primary osteoarthritis, left shoulder; M75.122 Complete rotator cuff tear or rupture of left shoulder, not specified as traumatic; Z73.6 Limitation of activities due to disability; M62.81 Muscle weakness (generalized) | CPT/HCPCS: 97010; 97110; 97112; 97140 ==

== ENCOUNTER 2025-03-11 08:52 | Outpatient (RCR) | payer BC, SELFPAY | END 2025-03-11 23:59 | disposition home or self-care (01) | LOC: RPT 08:52 | PROVIDERS: ATTENDING PHYSICIAN Physician Assistant Surgical; FAMILY PHYSICIAN Family Medicine | DX: Z47.1 Aftercare following joint replacement surgery (principal); M19.012 Primary osteoarthritis, left shoulder; M75.122 Complete rotator cuff tear or rupture of left shoulder, not specified as traumatic; Z73.6 Limitation of activities due to disability; Z96.612 Presence of left artificial shoulder joint; M62.81 Muscle weakness (generalized) | CPT/HCPCS: 97110; 97112; 97140 ==

== ENCOUNTER 2025-04-02 06:28 | Day surgery (SDC) | payer BC, SELFPAY | END 2025-04-02 12:15 | disposition home or self-care (01) | LOC: GI 06:28 | PROVIDERS: ATTENDING PHYSICIAN Internal Medicine | DX: Z12.11 Encounter for screening for malignant neoplasm of colon (principal); D12.0 Benign neoplasm of cecum; Z98.0 Intestinal bypass and anastomosis status | CPT/HCPCS: 45380; 88305 ==

== ENCOUNTER 2025-04-08 06:23 | Outpatient (RCR) | payer BC, SELFPAY | END 2025-04-08 23:59 | disposition home or self-care (01) | LOC: RPT 06:23 | PROVIDERS: ATTENDING PHYSICIAN Physician Assistant Surgical; FAMILY PHYSICIAN Family Medicine | DX: Z47.1 Aftercare following joint replacement surgery (principal); M19.012 Primary osteoarthritis, left shoulder; M75.122 Complete rotator cuff tear or rupture of left shoulder, not specified as traumatic; Z73.6 Limitation of activities due to disability; M62.81 Muscle weakness (generalized); Z96.612 Presence of left artificial shoulder joint | CPT/HCPCS: 97110; 97112; 97140 ==

== ENCOUNTER 2025-05-13 07:28 | Outpatient (RCR) | payer BC, SELFPAY | END 2025-05-13 11:43 | disposition home or self-care (01) | LOC: RPT 07:28 | PROVIDERS: ATTENDING PHYSICIAN Physician Assistant Surgical; FAMILY PHYSICIAN Family Medicine | DX: Z47.1 Aftercare following joint replacement surgery (principal); M19.012 Primary osteoarthritis, left shoulder; M75.122 Complete rotator cuff tear or rupture of left shoulder, not specified as traumatic; Z73.6 Limitation of activities due to disability; M62.81 Muscle weakness (generalized); Z96.612 Presence of left artificial shoulder joint | CPT/HCPCS: 97110; 97112 ==